=== PATIENT | male | born 1970 | race American Indian/Alaskan Native ===

== ENCOUNTER 2022-03-25 10:37 | Emergency (ER) | payer OTHER ==
[2022-03-25 11:31] LABS: Bilirubin,Urine NEG (Negative); Blood,Urine NEG (Negative); Color,Urine Yellow (Yellow)
[2022-03-25 11:38] LABS: Mucus,Urine 3+ /HPF
[2022-03-25] MEDS ORDERED: FAMOTIDINE 20 MG TAB PO ONE (14:40)
--- NOTE | 2022-03-25 14:40 | Emergency Department Report ---
ED Abdominal Pain HPI - General Chief Complaint: Abdominal Pain Stated Complaint: ABD PAIN Source: patient Mode of arrival: Ambulatory Limitations: No Limitations - History of Present Illness Initial Comments: 51-year-old male presented at presents to the ED complaining of abdominal pain x 3 week. Patient states that he has a history of GERD and hypertension. Patient states that he used to take omeprazole but stopped taking it over a year ago. Patient denies any drinking alcohol or eating any spicy food. Patient states pain has been for 3 weeks. He denies any nausea vomiting or diarrhea at present time. He denies any chest pain shortness of breath at present time. Patient is alert and oriented x3. No acute distress noted. No Ill appearance noted. MD Complaint: abdominal pain Onset/Timin -: week(s) Location: [facility] Radiation: none Migration to: no migration Severity scale (0 -10): 4 Consistency: intermittent Improves With: nothing Worsens With: nothing Associated Symptoms: denies other symptoms - Related Data Previous Rx's Medication Instructions Recorded Last Taken Type Acetaminophen/Codeine [Tylenol 1 tab PO Q6H PRN 3 Days #12 tab 03/25/22 Unknown Rx /Codeine # 3 tab] Ondansetron (Nf) [Zofran TAB] 8 mg PO Q8HR PRN 3 Days #12 tablet 03/25/22 Unknown Rx Allergies Allergy/AdvReac Type Severity Reaction Status Date / Time No Known Allergies Allergy Verified 03/25/22 10:57 ED Review of Systems ROS: Stated complaint: ABD PAIN Other details as noted in HPI Constitutional: denies: chills, fever Eyes: denies: eye pain, eye discharge, vision change ENT: denies: ear pain, throat pain Respiratory: denies: cough, shortness of breath, wheezing Cardiovascular: denies: chest pain, palpitations Endocrine: no symptoms reported Gastrointestinal: abdominal pain. denies: nausea, diarrhea Genitourinary: denies: urgency, dysuria Musculoskeletal: denies: back pain, joint swelling, arthralgia Skin: denies: rash, lesions Neurological: denies: headache, weakness, paresthesias Psychiatric: denies: anxiety, depression Hematological/Lymphatic: denies: easy bleeding, easy bruising ED Past Medical Hx - Medications Home Medications: Home Medications Medication Instructions Recorded Confirmed Last Taken Type Acetaminophen/Codeine [Tylenol 1 tab PO Q6H PRN 3 Days #12 tab 03/25/22 Unknown Rx /Codeine # 3 tab] Ondansetron (Nf) [Zofran TAB] 8 mg PO Q8HR PRN 3 Days #12 tablet 03/25/22 Unknown Rx ED Physical Exam - General Limitations: No Limitations General appearance: alert, in no apparent distress - Head Head exam: Present: atraumatic, normocephalic - Eye Eye exam: Present: normal appearance - ENT ENT exam: Present: mucous membranes moist - Neck Neck exam: Present: normal inspection - Respiratory Respiratory exam: Present: normal lung sounds bilaterally. Absent: respiratory distress - Cardiovascular Cardiovascular Exam: Present: regular rate, normal rhythm. Absent: systolic murmur, diastolic murmur, rubs, gallop - GI/Abdominal GI/Abdominal exam: Present: soft, normal bowel sounds - Rectal Rectal exam: Present: deferred - Extremities Exam Extremities exam: Present: normal inspection - Back Exam Back exam: Present: normal inspection - Neurological Exam Neurological exam: Present: alert, oriented X3 - Psychiatric Psychiatric exam: Present: normal affect, normal mood - Skin Skin exam: Present: warm, dry, intact, normal color. Absent: rash ED Course Vital Signs 03/25/22 03/25/22 03/25/22 10:58 17:00 19:10 Temperature 99 F Pulse Rate 67 68 Respiratory 16 18 Rate Blood Pressure 151/71 151/74 [Left] O2 Sat by Pulse 100 99 99 Oximetry ED Medical Decision Making - Lab Data Result diagrams: 03/25/22 13:57 03/25/22 13:57 - Medical Decision Making 51-year-old male presented at presents to the ED complaining of abdominal pain x 3 week. Patient states that he has a history of GERD and hypertension. Patient states that he used to take omeprazole but stopped taking it over a year ago. Patient denies any drinking alcohol or eating any spicy food. Patient states pain has been for 3 weeks. He denies any nausea vomiting or diarrhea at present time. He denies any chest pain shortness of breath at present time. Patient is alert and oriented x3. No acute distress noted. No Ill appearance noted. Physical examination is unremarkable. Rechecked the patient is resting quietly and comfortable and feeling better. I discussed the results of diagnostic study, my clinical impression and the plan for further treatment with the patient. Patient agrees with plan and discharge at this present time. All question addressed. I have given the patient instruction regarding a diagnosis ,expectation ,follow- up and return precaution. I explained to the patient that emergent condition may arise and to return to the ED for new worsen and any new persisting condition. I have explained the importance of following up with the primary care physician or referral physician listed below has instructed. The patient verbalized understanding of discharge instruction. Abnormal Lab Results 03/25/22 03/25/22 03/25/22 11:11 13:57 13:57 WBC 6.4 RBC 5.28 H Hgb 14.4 Hct 44.5 MCV 84 MCH 27 L MCHC 33 RDW 15.3 H Plt Count 277 Sodium 135 L Potassium 5.2 H Chloride 98.9 Carbon Dioxide 22 Anion Gap 19 BUN 14 Creatinine 0.8 Estimated GFR > 60 BUN/Creatinine Ratio 18 Glucose 113 H Calcium 9.9 Total Bilirubin 0.50 AST 24 ALT 21 Alkaline Phosphatase 70 Total Protein 8.1 Albumin 4.8 Albumin/Globulin Ratio 1.5 Lipase 91 H Urine Color Yellow Urine Turbidity Clear Urine pH 5.0 Ur Specific [place] 1.029 Urine Protein 30 mg/dl Urine Glucose (UA) Neg Urine Ketones 20 Urine Blood Neg Urine Nitrite Neg Urine Bilirubin Neg Urine Urobilinogen 4.0 Ur Leukocyte Esterase Neg Urine WBC (Auto) 1.0 Urine RBC (Auto) 2.0 Urine Mucus 3+ Critical care attestation.: If time is entered above; I have spent that time in minutes in the direct care of this critically ill patient, excluding procedure time. ED Disposition Clinical Impression: Chronic pancreatitis Qualifiers: Pancreatitis type: other Qualified Code(s): K86.1 - Other chronic pancreatitis Disposition: 01 HOME / SELF CARE / HOMELESS Is pt being admited?: No Does the pt Need Aspirin: No Condition: Stable Instructions: Chronic Pancreatitis Additional Instructions: Continue to take you to take Pepcid medication we have prescribed return to ED for any worsening symptom Prescriptions: Acetaminophen/Codeine [Tylenol /Codeine # 3 tab] 1 tab PO Q6H PRN 3 Days #12 tab PRN Reason: Pain, Mild (1-3) Ondansetron (Nf) [Zofran TAB] 8 mg PO Q8HR PRN 3 Days #12 tablet PRN Reason: Pain, Mild (1-3) Referrals: [facility] [Provider Group] - 3-5 Days Forms: Work/School Release Form(ED) Time of Disposition: 17:54
[2022-03-25] MEDS ORDERED: ALUM-MAG HYDROXIDE-SIMETHICONE 200-200-20MG/5ML ORAL LIQD 30 ML PO ONE (14:42)
[2022-03-25] MEDS ORDERED: LIDOCAINE VISCOUS 2% 15 ML ORAL LIQD PO ONE (14:42)
[2022-03-25 14:48] LABS: Alanine Aminotransferase 21 units/L (7-56); Albumin 4.8 g/dL (3.9-5); BUN/Creatinine Ratio 18; Blood Urea Nitrogen 14 mg/dL (9-20); Calcium 9.9 mg/dL (8.4-10.2); Hemolysis Index 104
[2022-03-25 14:52] LABS: Hematocrit 44.5 % (35.5-45.6); Hemoglobin 14.4 gm/dl (11.8-15.2); Mean Corpuscular HGB Conc 33 % (32-34); Mean Corpuscular Volume 84 fl (84-94); Platelet Count 277 K/mm3 (140-440); Red Blood Count 5.28 M/mm3 (3.65-5.03); Red Cell Distribution Width 15.3 % (13.2-15.2)
--- NOTE | 2022-03-25 17:05 | Cat Scan Report ---
CT abdomen pelvis w con INDICATION / CLINICAL INFORMATION: left upper quad pain. TECHNIQUE: Axial CT images were obtained through the abdomen and pelvis after 100 cc of Omnipaque [address] scans at this location are performed using CT dose reduction for ALARA by means of automated exposure control. COMPARISON: None available. FINDINGS: Lung bases are clear. Liver and gallbladder are unremarkable. No significant intrahepatic or extrahep atic biliary dilatation. Multiple calcifications are seen throughout the pancreas with moderate pancr eatic duct dilatation seen distally in the tail. There are also cystic structures within the pancreat ic head, body, and tail. Structure in the head measures 2 cm and the structure within the pancreatic tail measures 2.2 cm. Findings are consistent with sequela of chronic pancreatitis. There is moderate peripancreatic inflammatory stranding involving the body and tail the pancreas. No acute peripancrea tic collection is identified. Portal vein and SMV are patent. High-grade narrowing versus occlusion o f the splenic vein in the region of the pancreas body and tail. This may be chronic. The spleen and a drenals are unremarkable. No acute renal abnormality. No hydronephrosis. Bladder is unremarkable. There is wall thickening of the distal stomach, likely reflecting reactive gastritis. Small bowel and colon demonstrate no evidence of mechanical obstruction or inflammation. Normal appendix is seen. There is no free air or free fluid. No organized collection. Calcified atherosclerotic plaque is note d throughout the nonaneurysmal abdominal aorta and its branches. No acute abnormality. No acute osseous findings. IMPRESSION: 1. Findings most consistent with acute on chronic pancreatitis with moderate peripancreatic inflammat ory stranding involving the body and tail of the pancreas. No acute peripancreatic collection. 2. High-grade narrowing versus occlusion of the splenic vein at the body and tail of the pancreas. Th is may be chronic or could be related to edema from pancreatitis. The portal vein and SMV are widely patent. 3. Distal stomach mural thickening, likely reflecting reactive gastritis. Signer Name: Shreyas Novak MD Signed: 03/25/2022 5:00 PM Workstation Name: [id number]
[2022-03-25 19:11] VITALS: BP 151/74
== END 2022-03-25 19:11 | disposition home or self-care (01) ==
LOC: ED 10:37
DX: K86.1 Other chronic pancreatitis (principal); Z79.899 Other long term (current) drug therapy
CPT/HCPCS: 36415; 74177; 80053; 81001; 83690; 85027; 99284; Q9967